=== PATIENT | female | born 1975 | race Caucasian/White ===

== ENCOUNTER 2020-03-18 18:27 | Emergency (ER) | payer OTHER, SELFPAY ==
[2020-03-18 18:41] VITALS: BP 177/90; PULSE 76; RESP 16; TEMP 36.7; O2SAT 99
--- NOTE | 2020-03-18 19:08 | ED.URI ---
HPI - URI/Sore Throat General Chief Complaint: Upper Respiratory Infection Stated Complaint: Sore Throat Time Seen by Provider: 03/18/20 18:55 Source: patient and RN notes reviewed Mode of arrival: ambulatory Limitations: no limitations History of Present Illness HPI Narrative: Patient presents today complaining of a sore throat x2 days. Denies fever, cough, congestion, ear pain, nausea, vomiting, diarrhea. Sore throat has been worsening since onset and is worse on the right. She is requesting a strep test today. Currently rates her pain 7/10 which increases with swallowing. She has been taking Tylenol and Tylenol PM with mild relief. Smokes half pack per day. Denies any sick contacts. Declines order for COVID-19 testing. MD elicited complaint: sore throat Related Data Home Medications Medication Instructions Recorded Confirmed No Home Medications 03/18/20 03/18/20 Allergies Allergy/AdvReac Type Severity Reaction Status Date / Time No Known Allergies Allergy Verified 03/18/20 18:37 Review of Systems Review of Systems: Narrative: CONSTITUTIONAL: Denies body aches, fever, chills, or sweats. EYES: Denies visual changes, redness, or discharge. ENT: Denies rhinorrhea, congestion, or otalgia. + Sore throat CARDIOVASCULAR: Denies chest pain, palpitations, or edema. RESPIRATORY: Denies cough or dyspnea. GASTROINTESTINAL: Denies abdominal pain, nausea, vomiting, or diarrhea. GENITOURINARY: Denies dysuria or hematuria. SKIN: Denies rash, itching, or wounds. MUSCULOSKELETAL: Denies back pain, joint pain, or myalgia. NEUROLOGIC: Denies headache, numbness, tingling, or weakness. PSYCH: Denies depression or anxiety. PMFSH Comments At time of signature, I have reviewed and agree with nursing past medical, surgical, social and family history unless otherwise noted. Please see nursing chart for further information. There is no relevant family history pertinent to the presenting complaint Exam Narrative: Exam Narrative: GENERAL: Well-appearing, well-nourished, and in no acute distress. HEAD: Normocephalic, atraumatic. EYES: EOMI. No redness or drainage. Conjunctivae normal. ENT: Mucous membranes pink and moist. Nares clear. No rhinorrhea. TMs normal bilaterally. Throat mildly erythematous and edematous without exudate. Uvula midline. NECK: Normal AROM. Supple. Right anterior cervical chain lymphadenopathy. CHEST: No respiratory distress. Clear to auscultation. HEART: Regular rate and rhythm. No murmur appreciated. Normal peripheral pulses. EXTREMITIES: Normal range of motion. No edema. SKIN: Warm, dry, no rash. Capillary refill normal. Normal skin turgor. NEURO: No focal deficits. Alert and oriented x3. Gait steady. PSYCH: Normal affect. No signs of depression or anxiety. Course Vital Signs Vital signs: Vital Signs Temperature 98.0 F 03/18/20 18:41 Pulse Rate 76 03/18/20 18:41 Respiratory Rate 16 03/18/20 18:41 Blood Pressure 177/90 H 03/18/20 18:41 Pulse Oximetry 99 03/18/20 18:41 Temperature 98.0 F 03/18/20 18:41 Pulse Rate 76 03/18/20 18:41 Respiratory Rate 16 03/18/20 18:41 Blood Pressure 177/90 H 03/18/20 18:41 Pulse Oximetry 99 03/18/20 18:41 Reviewed. Pt has been instructed to follow up with her PCP regarding her elevated blood pressure today. MDM - URI/Sore Throat Differential Diagnosis Differential diagnosis: Likely upper respiratory infection, otitis media, viral infection, pharyngitis and other (Strep throat, tonsillitis) Lab Data Attestation: I reviewed the patient's lab results. Labs: Strep Screen Presumptive Negative *(Reference Range: Negative)* Critical Care Time Critical Care Time Critical Care Time: No Discharge Plan Discharge Clinical Impression: Acute viral pharyngitis Patient Disposition: Home, Self-Care Condition: Stable Instructions: Pharyngitis (ED) Additional Instructions: Your rapid stre
== END 2020-03-18 19:15 | disposition home or self-care (01) ==
PROVIDERS: Emergency Provider Nurse Practitioner; PCP Family Medicine
DX: J02.8 Acute pharyngitis due to other specified organisms (principal)
CPT/HCPCS: 87081; 87880; 99203; G0463

== ENCOUNTER 2024-12-02 11:50 | Emergency (ER) | payer OTHER, SELFPAY ==
--- NOTE | ~2024-12-02 | XR_ITS ---
XR ankle RT min 3V 12/02/2024 12:14 Indication: Right ankle pain after twisting injury Procedure: 4 views right ankle Comparison: No prior studies for comparison. Findings: There is anatomic alignment. No fracture, subluxation or dislocation. Talar dome is normal. No soft tissue abnormality. There is a degenerative calcaneal enthesophyte at the plantar surface. T here are degenerative changes of the talonavicular joint. Mild lateral soft tissue swelling. Impression: 1: No acute bone or joint abnormality. Reviewed, dictated and finalized at location B. Impression: 1: No acute bone or joint abnormality.
--- NOTE | 2024-12-02 11:58 | ED_ITS ---
HPI - Extremity Injury (Lower) General Chief Complaint: Extremity Injury, Lower Stated Complaint: stepped on nail Time Seen by Provider: 12/02/24 12:29 Source: patient and RN notes reviewed Mode of arrival: ambulatory Limitations: no limitations History of Present Illness HPI Narrative: 49-year-old female presents with multiple complaints. She reports yesterday she rolled her right ankle and has had swelling, bruising. Reports she is to use ice and elevation. She reports today she stepped on a mike nail with her right foot. The and digits are unrelated. She washed the wound. She is not up-to-date on her tetanus vaccination MD complaint: ankle injury and foot injury Related Data Allergies Allergy/AdvReac Type Severity Reaction Status Date / Time No Known Allergies Allergy Verified 12/02/24 12:19 Review of Systems Review of Systems: CONSTITUTIONAL: Denies malaise, chills, sweats, or fever. SKIN: Denies rash or itching, laceration, abrasion, redness, warmth, swelling. Reports puncture wound to the dorsal left foot MUSCULOSKELETAL: Reports right ankle pain, swelling. NEUROLOGIC: Denies numbness, weakness All systems reviewed & are unremarkable except as noted in HPI and below PMFSH Comments At time of signature, agree with nursing past medical, surgical, social and family history. There is no relevant family history pertinent to the presenting complaint Exam Narrative: GENERAL: Well-appearing, well-nourished, and in no acute distress. HEAD: Normocephalic, atraumatic. EYES: PERRLA, conjunctivae clear NECK: Supple. CHEST: Speaks in full sentences. No respiratory distress. HEART: Regular rate and rhythm. Normal and equal peripheral pulses. EXTREMITIES: Bilateral ankle, foot, digits have grossly normal strength and sensation, grossly normal range of motion. Right ankle mild edema and no erythema or ecchymosis. 5/5 strength with digit flexion and extension. Normal sensation with sensitivity to light touch and pain. General right ankle tenderness. No open wounds, no skin tenting, no devitalized tissue or atrophy, no trophic changes, no obvious deformity, alignment normal, nearby joints and structures intact. Distal pulses palpable and equal bilaterally, skin warm, dry, pink. Capillary refill less than 3 seconds. SKIN: Warm, dry, no rash. Closed Puncture wound noted to pedal left foot without surrounding erythema, edema, induration, warmth. NEURO: Alert and oriented x3. PSYCH: Normal mood and affect Course Course Emergency Course: Patient is aware of diagnosis, understands and agrees to treatment plan. Anti cipatory guidance given. Patient agrees to follow-up as directed and is aware of reasons to seek care at the emergency department. Portions of this record may have been created with voice recognition software Level of Care: Express Care Visit Vital Signs Vital signs: Vital Signs Temperature 98.9 F 12/02/24 12:02 Pulse Rate 92 12/02/24 12:02 Respiratory Rate 16 12/02/24 12:02 Blood Pressure 209/94 H 12/02/24 12:02 Pulse Oximetry 99 12/02/24 12:02 Oxygen Delivery Room Air 12/02/24 12:02 Temperature 98.9 F 12/02/24 12:02 Pulse Rate 92 12/02/24 12:02 Respiratory Rate 16 12/02/24 12:02 Blood Pressure 209/94 H 12/02/24 12:02 Pulse Oximetry 99 12/02/24 12:02 Oxygen Delivery Room Air 12/02/24 12:02 Reviewed. MDM - Extremity Injury (Lower) MDM Narrative Medical decision making narrative: The patient was evaluated by myself in the express care. History is obtained from patient who is an independent historian and physical exam was performed.? Available medical records were reviewed at this time. ? Exam findings show no acute concerns or changes; patient is non-toxic appearing and is in no distress. Patient is appropriate for outpatient treatment and follow-up. ? I have evaluated and discussed social determinants of health with the patient that could potentially impact subsequent diagnosis and treatment plans. ? Patients injury and pain is consistent with musculoskeletal etiology. No signs of neurological or vascular compromise on exam. Compartments and tissues are s oft without signs of compartment syndrome. Pain is felt appropriate for further evaluation on an outpatient basis. Imaging Data My impression: Images reviewed, interpreted by radiologist, agree, see report. Radiologist's impression: XR ankle RT min 3V 12/02/2024 12:14 Indication: Right ankle pain after twisting injury Procedure: 4 views right ankle Comparison: No prior studies for comparison. Findings: There is anatomic alignment. No fracture, subluxation or dislocation. Talar dome is normal. No soft tissue abnormality. There is a degenerative calcaneal enthesophyte at the plantar surface. There are degenerative changes of the talonavicular joint. Mild lateral soft tissue swelling. Impression: 1: No acute bone or joint abnormality. Critical Care Time Critical Care Time Critical Care Time: No Discharge Plan Discharge Clinical Impression: Ankle sprain and strain, Puncture wound Patient Disposition: Home Condition: Stable Instructions: Antibiotic Form, Ankle Sprain (ED), Puncture Wound in the Foot (ED) Additional Instructions: Ankle: Avoid activities that cause pain until the pain subsides. Ice to the area 20-30 minutes 4-6 times a day Elevate above heart Elastic wrap as directed for comfort for the next 5-7 days Tylenol for lesser pain Ibuprofen regularly for the next 2-3 days for the inflammation Follow up with your primary care provider if the condition is not improving within 1 week. If the condition worsens with numbness, tingling, decrease sensation with weakness seek treatment in the emergency room immediately. Puncture wound: Please follow up with your Primary Care Doctor within 48-72 hours. Rest and elevate affected area; apply moist heat/soaks 3-4 times daily for 10-15 minutes. Take Motrin 600mg every 8 hours with food for pain. Please take Antibiotics as directed. If you experience any worsening redness, swelling, streaking (red lines), fever or chills please go to the ER Patient Language: Citizen Of [place] Prescriptions: New amoxicillin-pot clavulanate 875-125 mg tablet 1 tablet PO Q12H 10 Days Qty: 20 0RF Follow-up/Referrals: Viviane,Shakira Mackenzie MD [Primary Care Provider] - Time of Disposition: 12:39
[2024-12-02 12:02] VITALS: BP 209/94; PULSE 92; RESP 16; TEMP 37.2; O2SAT 99
[2024-12-02] MEDS: TETANUS,DIPHTHERIA,AC PERTUSSIS ADULT (0.5 ML) BOOSTRIX IM (12:35)
== END 2024-12-02 12:55 | disposition home or self-care (01) ==
PROVIDERS: Emergency Provider Nurse Practitioner; PCP Family Medicine
DX: S93.401A Sprain of unspecified ligament of right ankle, initial encounter (principal); S96.911A Strain of unspecified muscle and tendon at ankle and foot level, right foot, initial encounter; X50.9XXA Other and unspecified overexertion or strenuous movements or postures, initial encounter; S91.331A Puncture wound without foreign body, right foot, initial encounter; W45.0XXA Nail entering through skin, initial encounter; Z23 Encounter for immunization
CPT/HCPCS: 73610; 90471; 90715; 99213; G0463